=== PATIENT | female | born 1975 | race Caucasian/White ===

== ENCOUNTER 2017-10-06 10:35 | Emergency (ER) | payer OTHER ==
[~2017-10-06] VITALS: Ht 154.9 cm; Wt 86.2 kg
[~2017-10-06 10:35] MED LIST: AMOX1TAB12 PO; CORTISPORIN EAR10 M1 OT; DECADRON P4 MG/ML-1M IH; FIORICET 50-321 EACH PO; FIORICET PO; FLEXERIL10 MG PO; FLONASE16 GM NS; GILTUSS TR TAB1 EACH PO; KETO10TA2 PO; LEVAQUIN500 MG PO; ORPH100T PO; PROVENTIL3 ML/2.5 M IH; TESSALON PERLE100 M1 PO; TORADOL60 MG IM; TUSSI PRES-B L120 M1 PO; VOLTAREM 75 MG PO; ZITHROMAX TRI-500 MG PO; ZITHROMAX500 MG PO; ZYRTEC10 MG; ZYRTEC10 MG PO
[2017-10-06] MEDS ORDERED: TREXIMET 85-501 EACH (10:58)
== END 2017-10-06 15:01 | disposition home or self-care (01) ==
LOC: ER 10:35
DX: J35.01 Chronic tonsillitis (principal); G43.909 Migraine, unspecified, not intractable, without status migrainosus

== ENCOUNTER 2017-12-04 12:22 | Emergency (ER) | payer OTHER ==
[~2017-12-04] VITALS: Ht 154.9 cm; Wt 86.2 kg
[~2017-12-04 12:22] MED LIST changes: +TREXIMET 85-501 EACH
[2017-12-05] MEDS ORDERED: KETO10TA2 PO (13:21)
== END 2017-12-04 21:03 | disposition home or self-care (01) ==
LOC: ER 12:22
DX: I16.0 Hypertensive urgency (principal); I10 Essential (primary) hypertension

== ENCOUNTER 2017-12-05 08:33 | Emergency (ER) | payer OTHER ==
[~2017-12-05] VITALS: Ht 154.9 cm; Wt 86.2 kg
[2017-12-05] MEDS ORDERED: KETO10TA2 PO (13:21)
== END 2017-12-05 13:43 | disposition home or self-care (01) ==
LOC: ER 08:33
DX: R11.11 Vomiting without nausea (principal); R51 Headache

== ENCOUNTER → 2018-04-06 | Outpatient (CLI) | payer OTHER | END | disposition home or self-care (01) | LOC: LAB 11:58 | DX: J11.1 Influenza due to unidentified influenza virus with other respiratory manifestations (principal); J06.9 Acute upper respiratory infection, unspecified ==

== ENCOUNTER 2018-04-16 15:27 | Outpatient (CLI) | payer OTHER | END 2018-04-16 15:37 | disposition home or self-care (01) | LOC: RAD 15:27 | DX: M54.5 Low back pain (principal) ==

== ENCOUNTER → 2018-04-23 | Emergency (ER) | payer OTHER ==
[~2018-04-23] VITALS: Ht 154.9 cm; Wt 86.2 kg
[~2018-04-23] MED LIST changes: +NEURONTIN600 MG PO
== END | disposition home or self-care (01) ==
LOC: ER 15:59
DX: M62.838 Other muscle spasm (principal); R51 Headache

== ENCOUNTER 2018-08-10 08:00 | Outpatient (CLI) | payer OTHER | END 2018-08-10 15:00 | disposition home or self-care (01) | LOC: LAB 08:00 | DX: E03.8 Other specified hypothyroidism (principal); E78.89 Other lipoprotein metabolism disorders; E10.9 Type 1 diabetes mellitus without complications; J45.20 Mild intermittent asthma, uncomplicated; M19.90 Unspecified osteoarthritis, unspecified site ==

== ENCOUNTER 2018-08-10 08:10 | Outpatient (CLI) | payer OTHER | END 2018-08-10 10:26 | disposition home or self-care (01) | LOC: RAD 501 08:10 | DX: J45.20 Mild intermittent asthma, uncomplicated (principal) ==

== ENCOUNTER 2019-10-22 10:48 | Emergency (ER) | payer OTHER ==
[~2019-10-22] VITALS: Ht 154.9 cm; Wt 83.9 kg
[2019-10-22] MEDS ORDERED: AMLODIPINE (11:01)
[2019-10-22] MEDS ORDERED: LOTREL 5-20 MG1 CAP (11:02)
[2019-10-22] MEDS ORDERED: VISTARIL50 MG PO (13:45)
== END 2019-10-22 14:20 | disposition home or self-care (01) ==
LOC: ER 10:48
DX: R00.2 Palpitations (principal); F06.4 Anxiety disorder due to known physiological condition

== ENCOUNTER 2019-11-11 13:20 | Outpatient (CLI) | payer OTHER | END 2019-11-11 15:04 | disposition home or self-care (01) | LOC: LAB 13:20 | PROVIDERS: ATTEND Internal Medicine | DX: M54.5 Low back pain (principal); I10 Essential (primary) hypertension; Z01.810 Encounter for preprocedural cardiovascular examination; E03.8 Other specified hypothyroidism; E78.89 Other lipoprotein metabolism disorders; J45.998 Other asthma; J45.20 Mild intermittent asthma, uncomplicated; Z12.11 Encounter for screening for malignant neoplasm of colon; Z12.31 Encounter for screening mammogram for malignant neoplasm of breast; Z13.820 Encounter for screening for osteoporosis ==

== ENCOUNTER → 2019-11-11 | Outpatient (CLI) | payer OTHER ==
[~2019-11-11] MED LIST changes: +AMLODIPINE; +LOTREL 5-20 MG1 CAP; +VISTARIL50 MG PO
== END | disposition home or self-care (01) ==
LOC: MAMO-SONO 12:07
PROVIDERS: ATTEND Internal Medicine
DX: J45.998 Other asthma (principal); Z12.31 Encounter for screening mammogram for malignant neoplasm of breast; I10 Essential (primary) hypertension; M54.5 Low back pain; Z01.810 Encounter for preprocedural cardiovascular examination; E03.8 Other specified hypothyroidism; E78.89 Other lipoprotein metabolism disorders; J45.20 Mild intermittent asthma, uncomplicated; Z12.11 Encounter for screening for malignant neoplasm of colon; Z13.820 Encounter for screening for osteoporosis

== ENCOUNTER → 2019-11-28 14:34 | Outpatient (CLI) | payer OTHER | END | disposition home or self-care (01) | LOC: LAB 14:34 | PROVIDERS: ATTEND Internal Medicine | DX: J45.998 Other asthma (principal); M54.5 Low back pain; I10 Essential (primary) hypertension; E03.8 Other specified hypothyroidism; E78.89 Other lipoprotein metabolism disorders; Z12.11 Encounter for screening for malignant neoplasm of colon; Z12.31 Encounter for screening mammogram for malignant neoplasm of breast; Z13.820 Encounter for screening for osteoporosis; J45.20 Mild intermittent asthma, uncomplicated ==

== ENCOUNTER 2019-12-03 09:00 | Outpatient (CLI) | payer OTHER | END 2019-12-03 15:00 | disposition home or self-care (01) | LOC: PPH VACUNA 09:00 | DX: Z23 Encounter for immunization (principal) ==

== ENCOUNTER 2019-12-13 14:48 | Outpatient (CLI) | payer OTHER | END 2019-12-13 14:55 | disposition home or self-care (01) | LOC: LAB 14:48 | PROVIDERS: ATTEND Obstetrics & Gynecology | DX: N92.1 Excessive and frequent menstruation with irregular cycle (principal) ==

== ENCOUNTER 2020-01-31 13:11 | Outpatient (CLI) | payer OTHER | END 2020-01-31 15:00 | disposition home or self-care (01) | LOC: RAD 13:11 | PROVIDERS: ATTEND Internal Medicine Cardiovascular Disease | DX: I11.9 Hypertensive heart disease without heart failure (principal) ==

== ENCOUNTER 2020-03-17 15:27 | Outpatient (CLI) | payer OTHER | END 2020-03-17 15:28 | disposition home or self-care (01) | LOC: PPH VACUNA 15:27 | DX: Z23 Encounter for immunization (principal) ==

== ENCOUNTER → 2020-06-01 09:40 | Outpatient (CLI) | payer OTHER | END | disposition home or self-care (01) | LOC: LAB 09:40 | PROVIDERS: ATTEND Internal Medicine Cardiovascular Disease | DX: E78.2 Mixed hyperlipidemia (principal); I11.9 Hypertensive heart disease without heart failure ==

== ENCOUNTER 2020-10-29 07:42 | Outpatient (CLI) | payer OTHER ==
[~2020-10-29 07:42] MED LIST changes: +NABUMETONE500 MG PO
== END 2020-10-29 07:55 | disposition home or self-care (01) ==
LOC: LAB 07:42
PROVIDERS: ATTEND Internal Medicine Cardiovascular Disease
DX: I11.9 Hypertensive heart disease without heart failure (principal); E78.2 Mixed hyperlipidemia

== ENCOUNTER 2020-11-03 13:37 | Outpatient (CLI) | payer OTHER | END 2020-11-03 13:42 | disposition home or self-care (01) | LOC: SONOGRAMA 13:37 | PROVIDERS: ATTEND Physical Medicine & Rehabilitation | DX: M25.532 Pain in left wrist (principal); G56.02 Carpal tunnel syndrome, left upper limb ==

== ENCOUNTER 2021-01-29 08:00 | Outpatient (CLI) | payer OTHER | END 2021-01-29 08:30 | disposition home or self-care (01) | LOC: PPH VACUNA 08:00 | PROVIDERS: ATTEND Emergency Medicine Pediatric Emergency Medicine | DX: Z23 Encounter for immunization (principal) ==

== ENCOUNTER 2021-03-10 08:00 | Outpatient (CLI) | payer OTHER | END 2021-03-10 08:30 | disposition home or self-care (01) | LOC: PPH VACUNA 08:00 | PROVIDERS: ATTEND Emergency Medicine Pediatric Emergency Medicine | DX: Z23 Encounter for immunization (principal) ==

== ENCOUNTER 2021-03-15 13:16 | Outpatient (CLI) | payer OTHER | END 2021-03-15 13:22 | disposition home or self-care (01) | LOC: LAB 13:16 | PROVIDERS: ATTEND Preventive Medicine Occupational Medicine | DX: Z20.828 Contact with and (suspected) exposure to other viral communicable diseases (principal) ==

== ENCOUNTER 2021-05-03 08:42 | Outpatient (CLI) | payer OTHER | END 2021-05-03 12:58 | disposition home or self-care (01) | LOC: LAB 08:42 | DX: I11.9 Hypertensive heart disease without heart failure (principal); E78.2 Mixed hyperlipidemia ==

== ENCOUNTER 2022-04-14 15:30 | Outpatient (CLI) | payer OTHER | END 2022-04-14 15:45 | disposition home or self-care (01) | LOC: PPH VACUNA 15:30 | PROVIDERS: ATTEND Emergency Medicine Pediatric Emergency Medicine | DX: Z23 Encounter for immunization (principal) ==

== ENCOUNTER 2022-09-28 08:08 | Outpatient (CLI) | payer OTHER | END 2022-09-28 08:17 | disposition home or self-care (01) | LOC: LAB 08:08 | DX: I11.9 Hypertensive heart disease without heart failure (principal); E78.2 Mixed hyperlipidemia ==

== ENCOUNTER 2022-11-25 08:36 | Outpatient (CLI) | payer OTHER | END 2022-11-25 08:40 | disposition home or self-care (01) | LOC: PPH VACUNA 08:36 | PROVIDERS: ATTEND Emergency Medicine Pediatric Emergency Medicine | DX: Z23 Encounter for immunization (principal) | CPT/HCPCS: 90686; G0008 ==

== ENCOUNTER 2023-01-13 07:54 | Outpatient (CLI) | payer OTHER | END 2023-01-13 07:55 | disposition home or self-care (01) | LOC: MAMO-SONO 07:54 | PROVIDERS: ATTEND Surgery | DX: Z12.31 Encounter for screening mammogram for malignant neoplasm of breast (principal); N60.11 Diffuse cystic mastopathy of right breast ==

== ENCOUNTER 2023-03-01 07:43 | Outpatient (CLI) | payer OTHER ==
[2023-03-01 08:21] LABS: URINE APPEARANCE Clear; URINE BILIRRUBIN Negative (NEGATIVE); URINE BLOOD Negative; URINE COLOR Dark Yellow; URINE GLUCOSE Negative (NEGATIVE); URINE LEUKOCYTE Trace; URINE NITRATE Negative; URINE PROTEIN Trace (NEGATIVE)
[2023-03-01 08:23] LABS: URINE BACTERIA 2241.3 uL (0.0-1933); URINE EPITHELIAL CELLS 86.5 uL (0.0-38.8); URINE RBC 10.4 uL (0.0-20.8); URINE WBC 32.6 uL (0.0-23.2)
[2023-03-01 08:25] LABS: HEMATOCRIT 33.7 % (36.0-45.00); HEMOGLOBIN 11.1 g/dL (12.0-15.00); MEAN CELL VOLUME 81.2 fL (80.00-100.00); MEAN CORPUSCULAR HEMOGLOBIN 26.8 pg (27.00-32.0); PLATELET COUNT 245 K/uL (150-450); RED BLOOD COUNT 4.15 M/uL (4.00-6.00); RED CELL DISTRIBUTION WIDTH 15.2 % (11.5-14.5)
[2023-03-01 08:33] LABS: URINE MUCUS HEAVY
[2023-03-01 08:47] LABS: ALBUMIN 3.5 gm/dL (3.4-5.0); BILIRUBIN TOTAL 0.57 mg/dL (0.3-1.2); CALCIUM 8.5 mg/dL (8.5-10.1); CHOL HDL RATIO 2.4 (0-5.0); CREATININE SERUM 0.96 mg/dL (0.55-1.02); GFR 61.77; POTASSIUM 4.25 mEq/L (3.5-5.1); TOTAL PROTEIN 6.5 gm/dL (6.4-8.2)
== END 2023-03-01 07:49 | disposition home or self-care (01) ==
LOC: LAB 07:43
PROVIDERS: ATTEND Internal Medicine Cardiovascular Disease
DX: E11.9 Type 2 diabetes mellitus without complications (principal); E78.2 Mixed hyperlipidemia

== ENCOUNTER 2023-12-25 08:20 | Outpatient (CLI) | payer OTHER | END 2023-12-25 09:00 | disposition home or self-care (01) | LOC: PPH VACUNA 08:20 | PROVIDERS: ATTEND Emergency Medicine Pediatric Emergency Medicine | DX: Z23 Encounter for immunization (principal) ==

== ENCOUNTER → 2024-01-10 07:26 | Outpatient (CLI) | payer OTHER ==
[2024-01-10 08:41] LABS: PH,URINE 5.5 (5.0-8.0); URINE APPEARANCE Cloudy; URINE BILIRRUBIN Negative (NEGATIVE); URINE BLOOD Negative; URINE COLOR Yellow; URINE GLUCOSE Negative (NEGATIVE); URINE KETONE Negative (NEGATIVE); URINE LEUKOCYTE Negative; URINE NITRATE Negative; URINE PROTEIN Trace (NEGATIVE)
[2024-01-10 08:45] LABS: HEMATOCRIT 34.9 % (36.0-45.00); HEMOGLOBIN 11.6 g/dL (12.0-15.00); MEAN CELL VOLUME 82.3 fL (80.00-100.00); MEAN CORPUSCULAR HEMOGLOBIN 27.3 pg (27.00-32.0); MEAN CORPUSCULAR HGB CONC 33.2 g/dl (32.0-36.0); PLATELET COUNT 274 K/uL (150-450); RED BLOOD COUNT 4.25 M/uL (4.00-6.00); RED CELL DISTRIBUTION WIDTH 14.8 % (11.5-14.5)
[2024-01-10 09:10] LABS: URINE BACTERIA 3733.2 uL (0.0-1933); URINE WBC 21.7 uL (0.0-23.2)
[2024-01-10 09:39] LABS: URINE CAST 0.15 uL (0.0-1.40)
[2024-01-10 10:11] LABS: ALBUMIN 3.5 gm/dL (3.4-5.0); BILIRUBIN TOTAL 0.58 mg/dL (0.3-1.2); CALCIUM 8.5 mg/dL (8.5-10.1); CHOL HDL RATIO 2.7 (0-5.0); CREATININE SERUM 0.89 mg/dL (0.55-1.02); GFR 67.13; GLOBULINA 3.3 G/DL (2.4-3.5); POTASSIUM 4.28 mEq/L (3.5-5.1); T4 FREE 0.88 NG/ML (0.76-1.46); TOTAL PROTEIN 6.8 gm/dL (6.4-8.2); TSH 3.31 uIU/mL (0.358-3.74)
== END | disposition home or self-care (01) ==
LOC: LAB 07:26
PROVIDERS: ATTEND Internal Medicine Cardiovascular Disease
DX: E03.9 Hypothyroidism, unspecified (principal); I11.9 Hypertensive heart disease without heart failure; E78.2 Mixed hyperlipidemia; R73.01 Impaired fasting glucose

== ENCOUNTER 2024-01-10 13:37 | Outpatient (CLI) | payer OTHER | END 2024-01-10 13:59 | disposition home or self-care (01) | LOC: MAMO-SONO 13:37 | PROVIDERS: ATTEND Surgery | DX: N60.11 Diffuse cystic mastopathy of right breast (principal); N60.12 Diffuse cystic mastopathy of left breast ==

== ENCOUNTER 2024-05-27 07:10 | Outpatient (CLI) | payer OTHER | END 2024-05-27 07:24 | disposition home or self-care (01) | LOC: NUCLEAR 07:10 | PROVIDERS: ATTEND Internal Medicine Cardiovascular Disease | DX: I11.9 Hypertensive heart disease without heart failure (principal) ==

== ENCOUNTER 2024-06-21 10:36 | Outpatient (CLI) | payer OTHER | END 2024-06-21 10:43 | disposition home or self-care (01) | LOC: RAD 10:36 | PROVIDERS: ATTEND Internal Medicine Pulmonary Disease | DX: Z00.00 Encounter for general adult medical examination without abnormal findings (principal) ==

== ENCOUNTER 2025-01-16 08:34 | Outpatient (CLI) | payer OTHER | END 2025-01-16 08:41 | disposition home or self-care (01) | LOC: MAMO-SONO 08:34 | PROVIDERS: ATTEND Surgery | DX: N60.11 Diffuse cystic mastopathy of right breast (principal); N60.12 Diffuse cystic mastopathy of left breast ==

== ENCOUNTER 2025-03-10 09:23 | Outpatient (CLI) | payer OTHER ==
[2025-03-10 09:59] LABS: BASO % 0.4 % (0.1-1.2); EOS # 0.13 (0.04-0.54); EOS % 1.4 % (0.7-7.0); LYMPH # 1.53 (1.18-3.74); LYMPH % 16.6 % (19.3-53.1); MEAN PLATELET VOLUME 11.40 fl (9.4-12.4); MONO # 0.69 (0.24-0.82); MONO % 7.5 % (4.7-12.5); NEUT # 6.79 (1.56-6.13); NEUT % 73.8 % (34.0-71.1); RED CELL DISTRIBUTION WIDTH 14.4 % (11.6-14.4)
[2025-03-10 10:24] LABS: URINE APPEARANCE Clear; URINE BILIRRUBIN Negative (NEGATIVE); URINE BLOOD Large; URINE COLOR Yellow; URINE GLUCOSE Negative (NEGATIVE); URINE KETONE Negative (NEGATIVE); URINE LEUKOCYTE Trace; URINE NITRATE Negative; URINE PROTEIN Negative (NEGATIVE); URINE UROBILINOGEN 0.2 E.U./dl
[2025-03-10 10:29] LABS: URINE BACTERIA 38.8 uL (0.0-1933); URINE EPITHELIAL CELLS 3.8 uL (0.0-38.8); URINE RBC 523.4 uL (0.0-20.8); URINE WBC 5.9 uL (0.0-23.2)
[2025-03-10 10:38] LABS: URINE CAST 0.14 uL (0.0-1.40)
[2025-03-10 12:00] LABS: ALT/SGPT 20.0 U/L (12-78); AST/SGOT 11.0 U/L (15-37); BILIRUBIN TOTAL 0.61 mg/dL (0.3-1.2); BUN CREA RATIO 14.0 (7.0-25.0); CHOL HDL RATIO 2.7 (0-5.0); CREATININE SERUM 0.96 mg/dL (0.55-1.02); GFR 61.27; GLOBULINA 3.6 G/DL (2.4-3.5); GLUCOSE FASTING 95.0 mg/dL (65-100); HDL 59.0 mg/dl (40-60); LDL 89.0 mg/dl (0-130); OSMOLALITY SERUM 281.0 MOSM/KG (275-295); TSH 3.39 uIU/mL (0.358-3.74); VLDL 13.0 (0-39)
== END 2025-03-10 09:30 | disposition home or self-care (01) ==
LOC: LAB 09:23
DX: E03.9 Hypothyroidism, unspecified (principal); E78.2 Mixed hyperlipidemia; I11.9 Hypertensive heart disease without heart failure